=== PATIENT | male | born 1940 | race Caucasian/White ===

== ENCOUNTER 2022-01-04 14:59 | Inpatient (IN) ==
[2022-01-04 16:23] LABS: Basophils # 0.1 K/mcL (0.0-0.2); Basophils % 0.8 %; Eosinophils # 0.6 K/mcL (0.0-0.6); Eosinophils % 7.2 %; Hematocrit 39.6 % (37.5-50.1); Hemoglobin 13.2 g/dL (12.9-16.9); Immature Granulocytes % 0.5 % (0-4); Lymphocytes # 0.8 K/mcL (0.6-4.6); Lymphocytes % 9.2 %; Mean Corpuscular HGB Conc 33.3 g/dL (31.6-35.5); Mean Corpuscular Hemoglobin 33.2 pg (28.0-33.3); Mean Corpuscular Volume 99.7 fL (83.0-100.0); Mean Platelet Volume 10.3 fL (9.4-12.4); Monocytes # 0.8 K/mcL (0.0-1.3); Monocytes % 8.6 %; Neutrophils # 6.5 K/mcL (1.6-8.9); Platelet Count 142 K/mcL (140-400); Red Blood Count 3.97 M/mcL (4.19-5.50); Red Cell Distribution Width 16.5 % (11.5-14.5); Segmented Neutrophils % 73.7 %; White Blood Count 8.8 K/mcL (4.3-11.1)
[2022-01-04 16:31] LABS: INR 1.5; Prothrombin Time 16.4 Seconds (9.4-12.1)
[2022-01-04 17:07] LABS: Albumin 3.1 g/dL (3.5-5.7); Albumin/Globulin Ratio 0.8 (1.1-2.2); Bilirubin,Total 4.1 mg/dL (0.3-1.0); Calcium 9.1 mg/dL (8.6-10.3); Globulin 3.8 g/dL (2.4-3.5); Potassium 3.7 mEq/L (3.5-5.1); Total Protein 6.9 g/dL (6.4-8.9)
[2022-01-04] MEDS ORDERED: Naloxone 0.4 MG/ML INJ IVP PRN (20:18)
[2022-01-04] MEDS ORDERED: Ondansetron 4 MG/2 ML VIAL IVP PRN (20:18)
[2022-01-04] MEDS ORDERED: D5% in Water 1,000 ML IVC PRN (21:46)
[2022-01-04] MEDS ORDERED: *HR* Dextrose 50 % in Water (Syg) 50 ML SYRINGE IVP PRN (21:46)
[2022-01-04] MEDS ORDERED: Dextrose 4 GM Chewable Tablets PO PRN ×2 (21:46)
[2022-01-04] MEDS ORDERED: Albumin 25% 25gram/100mL 25 GM/100 ML IV.SOLN IVPB ONE (21:56)
[2022-01-04] MEDS ORDERED: Perflutren Lipid Microsphere 1.3 ML in 0.9 % Sodium Chloride 8.7 ML IVP PRN (22:01)
[2022-01-04] MEDS ORDERED: Potassium Chloride Elixir 20 MEQ/15 ML UDC PO ONE (22:49)
[2022-01-04] MEDS ORDERED: Magnesium Sulfate 1 GM/102 ML PIGGYBACK IVPB ONE (22:49)
[2022-01-04 23:17] LABS: Troponin I 0.03 ng/mL (< 0.04)
[2022-01-04 23:55] LABS: Magnesium 1.8 mg/dL (1.6-2.6)
[2022-01-05] MEDS ORDERED: Furosemide 40 MG/4 ML VIAL IVP ONE (01:06)
[2022-01-05 02:13] LABS: Hematocrit 32.8 % (37.5-50.1); Hemoglobin 11.3 g/dL (12.9-16.9); Mean Corpuscular HGB Conc 34.5 g/dL (31.6-35.5); Mean Corpuscular Volume 101.5 fL (83.0-100.0); Mean Platelet Volume 10.5 fL (9.4-12.4); Platelet Count 116 K/mcL (140-400); Red Blood Count 3.23 M/mcL (4.19-5.50); Red Cell Distribution Width 16.4 % (11.5-14.5); White Blood Count 7.5 K/mcL (4.3-11.1)
[2022-01-05 02:30] LABS: INR 1.7; Prothrombin Time 18.4 Seconds (9.4-12.1)
[2022-01-05 02:33] LABS: Calcium 9.2 mg/dL (8.6-10.3); Potassium 3.9 mEq/L (3.5-5.1)
[2022-01-05] MEDS ORDERED: *HR* Metoprolol 5 MG/5 ML VIAL IVP ONE (03:00)
[2022-01-05] MEDS ORDERED: Pantoprazole 40 MG VIAL IVP ONE (03:11)
[2022-01-05] MEDS ORDERED: Tiotropium 10 INH DOSE IH ONE (07:42)
[2022-01-05] MEDS: Insulin LISPRO 300 UNITS/3 ML VIAL SUBQ SCH ×3 (07:55→17:34)
[2022-01-05] MEDS: Albumin 25% 25gram/100mL 25 GM/100 ML IV.SOLN IVPB SCH ×2 (10:09→16:11)
[2022-01-05] MEDS: Aspirin Enteric Coated 81 MG Tablet PO SCH (10:10)
[2022-01-05] MEDS: Tiotropium 10 INH DOSE IH SCH (10:25)
[2022-01-05 15:44] LABS: Bilirubin,Direct 1.8 mg/dL (0.0-0.2); Bilirubin,Indirect 3.1 mg/dL (0.0-1.0); Bilirubin,Total 4.9 mg/dL (0.3-1.0)
[2022-01-05 16:06] LABS: Hepatitis B Surface Antigen Nonreactive (Nonreactive)
[2022-01-05 16:34] LABS: Hepatitis B Core IgM Nonreactive (Nonreactive)
[2022-01-05 16:35] LABS: Hepatitis C Virus Antibody Nonreactive (Nonreactive)
[2022-01-05 16:36] LABS: Hepatitis A Antibody IgM Nonreactive (Nonreactive)
[2022-01-05 17:38] LABS: Glucose,Peritoneal Fluid 126 mg/dL (No Ref Range); LDH,Peritoneal Fluid 72 Units/L (No Ref Range); Total Protein,Peritoneal Fluid < 2.0 g/dL
[2022-01-05 17:51] LABS: Basophils,Peritoneal Fluid 0 %; Eosinophils,Peritoneal Fluid 0 %
[2022-01-05 17:52] LABS: Appearance of Peritoneal Fl CLEAR (Clear)
[2022-01-05 17:57] LABS: RBC,Peritoneal Fluid < 2000 RBC/mcL
[2022-01-05] MEDS ORDERED: Triamcinolone Acet 0.1% CRM 15 GM TUBE TP PRN (18:12)
[2022-01-05] MEDS ORDERED: Ipratropium/Albuterol Neb 3 ML IH PRN (18:36)
[2022-01-05] MEDS: Budesonide/Formoterol 160/4.5 1 PUFF INH IH SCH (20:53)
[2022-01-06] MEDS: Albumin 25% 25gram/100mL 25 GM/100 ML IV.SOLN IVPB SCH (00:01)
[2022-01-06] MEDS: *HR* Heparin 5,000 UNIT/ML VIAL SQ SCH ×2 (05:09→16:52)
[2022-01-06] MEDS: Budesonide/Formoterol 160/4.5 1 PUFF INH IH SCH ×2 (07:34→20:18)
[2022-01-06] MEDS: Tiotropium 10 INH DOSE IH SCH (07:34)
[2022-01-06] MEDS: Insulin LISPRO 300 UNITS/3 ML VIAL SUBQ SCH ×3 (08:52→15:41)
[2022-01-06] MEDS: Aspirin Enteric Coated 81 MG Tablet PO SCH (09:25)
[2022-01-06 14:00] LABS: Basophils # 0.1 K/mcL (0.0-0.2); Basophils % 1.1 %; Eosinophils # 0.6 K/mcL (0.0-0.6); Eosinophils % 10.2 %; Hematocrit 28.7 % (37.5-50.1); Immature Granulocytes % 0.3 % (0-4); Lymphocytes # 0.8 K/mcL (0.6-4.6); Lymphocytes % 13.4 %; Mean Corpuscular HGB Conc 33.1 g/dL (31.6-35.5); Mean Corpuscular Hemoglobin 33.8 pg (28.0-33.3); Mean Corpuscular Volume 102.1 fL (83.0-100.0); Mean Platelet Volume 10.4 fL (9.4-12.4); Monocytes # 0.7 K/mcL (0.0-1.3); Monocytes % 10.4 %; Platelet Count 102 K/mcL (140-400); Red Blood Count 2.81 M/mcL (4.19-5.50); Red Cell Distribution Width 16.5 % (11.5-14.5); Segmented Neutrophils % 64.6 %; White Blood Count 6.3 K/mcL (4.3-11.1)
[2022-01-06 14:02] LABS: Hemoglobin 9.5 g/dL (12.9-16.9)
[2022-01-06 14:18] LABS: Albumin 3.2 g/dL (3.5-5.7); Albumin/Globulin Ratio 1.2 (1.1-2.2); Bilirubin,Direct 1.4 mg/dL (0.0-0.2); Bilirubin,Indirect 1.9 mg/dL (0.0-1.0); Bilirubin,Total 3.3 mg/dL (0.3-1.0); Calcium 8.7 mg/dL (8.6-10.3); Globulin 2.7 g/dL (2.4-3.5); Potassium 3.5 mEq/L (3.5-5.1); Total Protein 5.9 g/dL (6.4-8.9)
[2022-01-06 15:04] LABS: Estimated Average Glucose 94 mg/dl; Hemoglobin A1C 4.9 %
[2022-01-06] MEDS: Lactulose Oral Soln 20 GM/30 ML UDC PO SCH (19:48)
[2022-01-07 02:19] LABS: Basophils # 0.1 K/mcL (0.0-0.2); Basophils % 0.9 %; Eosinophils # 0.4 K/mcL (0.0-0.6); Eosinophils % 7.7 %; Hematocrit 28.8 % (37.5-50.1); Hemoglobin 9.8 g/dL (12.9-16.9); Immature Granulocytes % 0.2 % (0-4); Lymphocytes # 0.6 K/mcL (0.6-4.6); Lymphocytes % 11.3 %; Mean Platelet Volume 10.3 fL (9.4-12.4); Monocytes # 0.4 K/mcL (0.0-1.3); Monocytes % 7.9 %; Platelet Count 101 K/mcL (140-400); Red Blood Count 2.88 M/mcL (4.19-5.50); Red Cell Distribution Width 16.3 % (11.5-14.5); White Blood Count 5.6 K/mcL (4.3-11.1)
[2022-01-07 02:40] LABS: Albumin/Globulin Ratio 1.2 (1.1-2.2); Bilirubin,Direct 1.2 mg/dL (0.0-0.2); Bilirubin,Indirect 1.9 mg/dL (0.0-1.0); Bilirubin,Total 3.1 mg/dL (0.3-1.0); Globulin 2.5 g/dL (2.4-3.5); Total Protein 5.5 g/dL (6.4-8.9)
[2022-01-07 02:41] LABS: Calcium 8.7 mg/dL (8.6-10.3); Potassium 3.9 mEq/L (3.5-5.1)
[2022-01-07 03:03] LABS: Folate 7.3 ng/mL (3.0-16.0)
[2022-01-07] MEDS: *HR* Heparin 5,000 UNIT/ML VIAL SQ SCH ×2 (05:44→18:29)
[2022-01-07] MEDS: Tiotropium 10 INH DOSE IH SCH (07:29)
[2022-01-07] MEDS: Budesonide/Formoterol 160/4.5 1 PUFF INH IH SCH ×2 (07:30→20:23)
[2022-01-07] MEDS: Aspirin Enteric Coated 81 MG Tablet PO SCH (08:31)
[2022-01-07] MEDS: Lactulose Oral Soln 20 GM/30 ML UDC PO SCH ×2 (08:31→16:53)
[2022-01-07] MEDS: Insulin LISPRO 300 UNITS/3 ML VIAL SUBQ SCH ×3 (08:32→15:57)
[2022-01-07] MEDS ORDERED: *HR* LORazepam 2 MG/ML VIAL IVP ONE (08:45)
[2022-01-07] MEDS ORDERED: Ergocalciferol (VIT D2) 50,000 UNIT (1.25MG) CAP PO SCH (12:00)
[2022-01-07 17:49] LABS: Fluid Source for Albumin PERITONEAL
[2022-01-08 01:59] LABS: Basophils # 0.1 K/mcL (0.0-0.2); Basophils % 1.1 %; Eosinophils # 0.4 K/mcL (0.0-0.6); Eosinophils % 7.6 %; Hematocrit 28.4 % (37.5-50.1); Hemoglobin 9.4 g/dL (12.9-16.9); Immature Granulocytes % 0.2 % (0-4); Immature Platelets 2.3 % (1.1-6.1); Lymphocytes # 0.6 K/mcL (0.6-4.6); Lymphocytes % 11.3 %; Mean Corpuscular HGB Conc 33.1 g/dL (31.6-35.5); Mean Corpuscular Hemoglobin 33.9 pg (28.0-33.3); Mean Corpuscular Volume 102.5 fL (83.0-100.0); Mean Platelet Volume 10.2 fL (9.4-12.4); Monocytes # 0.5 K/mcL (0.0-1.3); Monocytes % 9.5 %; Nucleated Red Blood Cells 0.4 /100 WBC (0); Platelet Count 102 K/mcL (140-400); Red Blood Count 2.77 M/mcL (4.19-5.50); Red Cell Distribution Width 16.5 % (11.5-14.5); Segmented Neutrophils % 70.3 %; White Blood Count 5.7 K/mcL (4.3-11.1)
[2022-01-08 02:18] LABS: Albumin/Globulin Ratio 1.1 (1.1-2.2); Bilirubin,Direct 1.1 mg/dL (0.0-0.2); Bilirubin,Indirect 1.6 mg/dL (0.0-1.0); Bilirubin,Total 2.7 mg/dL (0.3-1.0); Calcium 8.6 mg/dL (8.6-10.3); Globulin 2.8 g/dL (2.4-3.5); Phosphorous 3.2 mg/dL (2.7-4.5); Potassium 3.7 mEq/L (3.5-5.1); Total Protein 5.8 g/dL (6.4-8.9)
[2022-01-08] MEDS: *HR* Heparin 5,000 UNIT/ML VIAL SQ SCH (05:11)
[2022-01-08 06:39] VITALS: BP 145/78; PULSE 83; TEMP 98.2
[2022-01-08] MEDS: Tiotropium 10 INH DOSE IH SCH (07:40)
[2022-01-08] MEDS: Budesonide/Formoterol 160/4.5 1 PUFF INH IH SCH (07:40)
[2022-01-08 07:42] VITALS: O2SAT 97
[2022-01-08] MEDS: Insulin LISPRO 300 UNITS/3 ML VIAL SUBQ SCH (08:27)
[2022-01-08] MEDS: Aspirin Enteric Coated 81 MG Tablet PO SCH (08:27)
[2022-01-08] MEDS: Lactulose Oral Soln 20 GM/30 ML UDC PO SCH (08:28)
== END 2022-01-08 10:07 | disposition home health service (06) | DRG 432 ==
LOC: 2ANU 14:59 → EMEROOARM 14:59 → SUATTDRO 20:02 → 2ANU 20:57
PROVIDERS: ADMIT Internal Medicine; ATTEND Pharmacist

== ENCOUNTER 2022-02-05 09:26 | Observation (INO) ==
[2022-02-05] MEDS ORDERED: *HR* HYDROcodone/Acet 5/325 mg TABLET PO PRN (12:18)
[2022-02-05] MEDS ORDERED: Ondansetron 4 MG/2 ML VIAL IVP PRN (12:18)
[2022-02-05] MEDS ORDERED: Naloxone 0.4 MG/ML INJ IVP PRN (12:18)
[2022-02-05] MEDS ORDERED: *HR* OxyCODONE Immed Rel 5 MG TABLET PO PRN (15:04)
[2022-02-05] MEDS: Albumin 25% 25gram/100mL 25 GM/100 ML IV.SOLN IVPB SCH (16:59)
[2022-02-05] MEDS: Fenofibrate 54 MG TABLET PO SCH (21:35)
[2022-02-05] MEDS: Lactulose Oral Soln 20 GM/30 ML UDC PO SCH (21:36)
[2022-02-06 02:13] LABS: Basophils # 0.1 K/mcL (0.0-0.2); Basophils % 0.8 %; Eosinophils # 0.7 K/mcL (0.0-0.6); Eosinophils % 6.9 %; Hematocrit 25.2 % (37.5-50.1); Hemoglobin 8.2 g/dL (12.9-16.9); Immature Granulocytes % 0.6 % (0-4); Lymphocytes # 1.1 K/mcL (0.6-4.6); Lymphocytes % 10.9 %; Mean Corpuscular HGB Conc 32.5 g/dL (31.6-35.5); Mean Corpuscular Volume 104.6 fL (83.0-100.0); Mean Platelet Volume 10.3 fL (9.4-12.4); Monocytes # 0.9 K/mcL (0.0-1.3); Monocytes % 8.6 %; Neutrophils # 7.5 K/mcL (1.6-8.9); Platelet Count 102 K/mcL (140-400); Red Blood Count 2.41 M/mcL (4.19-5.50); Red Cell Distribution Width 16.6 % (11.5-14.5); Segmented Neutrophils % 72.2 %; White Blood Count 10.4 K/mcL (4.3-11.1)
[2022-02-06 02:22] LABS: INR 1.6; Prothrombin Time 18.2 Seconds (9.4-12.1)
[2022-02-06 02:25] LABS: Activated Partial Thrombo Time 34.7 Seconds (26.0-36.0)
[2022-02-06 02:36] LABS: Calcium 8.8 mg/dL (8.6-10.3); Magnesium 2.2 mg/dL (1.6-2.6); Phosphorous 4.8 mg/dL (2.7-4.5); Potassium 3.7 mEq/L (3.5-5.1)
[2022-02-06] MEDS: Albumin 25% 25gram/100mL 25 GM/100 ML IV.SOLN IVPB SCH ×3 (08:41→16:13)
[2022-02-06] MEDS: Aspirin Enteric Coated 81 MG Tablet PO SCH (08:42)
[2022-02-06] MEDS: Lactulose Oral Soln 20 GM/30 ML UDC PO SCH ×2 (08:43→22:08)
[2022-02-06] MEDS: Fenofibrate 54 MG TABLET PO SCH (22:09)
[2022-02-07] MEDS: Albumin 25% 25gram/100mL 25 GM/100 ML IV.SOLN IVPB SCH ×2 (00:12→09:23)
[2022-02-07 04:37] LABS: Calcium 9.1 mg/dL (8.6-10.3); Magnesium 2.3 mg/dL (1.6-2.6); Phosphorous 4.9 mg/dL (2.7-4.5); Potassium 4.1 mEq/L (3.5-5.1)
[2022-02-07 06:36] VITALS: BP 104/58; PULSE 75; TEMP 98; O2SAT 95
[2022-02-07] MEDS: Aspirin Enteric Coated 81 MG Tablet PO SCH (09:22)
[2022-02-07] MEDS: Lactulose Oral Soln 20 GM/30 ML UDC PO SCH (09:22)
== END 2022-02-07 12:01 | disposition hospice, home (50) ==
LOC: 2ANU → SUATTDRO 11:26
PROVIDERS: ADMIT Hospitalist; ATTEND Internal Medicine